=== PATIENT | female | born 1955 | race Caucasian/White ===

== ENCOUNTER 2022-02-20 11:14 | Emergency (ER) | payer MEDICARE, OTHER | END 2022-02-20 12:07 | disposition home or self-care (01) | LOC: ERS 11:14 | DX: B34.9 Viral infection, unspecified (principal); I10 Essential (primary) hypertension; Z87.891 Personal history of nicotine dependence; Z79.899 Other long term (current) drug therapy | CPT/HCPCS: 99283 ==